=== PATIENT | male | born 1945 | race Caucasian/White ===

== ENCOUNTER → 2020-05-11 | Outpatient (CLI) | payer MEDICARE, OTHER ==
[2018-04-01 16:21] VITALS: BP 163/84
[~2020-05-11] MED LIST: ASPI-630 PO; CLOP75TA PO; DIAZ5TAB4 PO; DILT180C29 PO; FAMO20TA5 PO; IRBE300T23 PO; PANT40TA77 PO; WARF2.5T71 PO; WARF5TAB2 PO
== END | disposition home or self-care (01) ==
LOC: LAB 13:47
PROVIDERS: ATTEND Surgery
DX: Z01.818 Encounter for other preprocedural examination (principal); Z11.59 Encounter for screening for other viral diseases; I65.23 Occlusion and stenosis of bilateral carotid arteries
CPT/HCPCS: U0003-CS

== ENCOUNTER 2020-05-16 08:04 | Inpatient (IN) | payer MEDICARE, OTHER ==
[2020-05-16] VITALS (8 sets, daily range): BP systolic 131–189; BP diastolic 63–84
[~2020-05-16] VITALS: Ht 172.7 cm; Wt 78.0 kg
[~2020-05-16 08:04] MED LIST changes: +CLINDAMYCIN 900MG PREMIX 50 ML IV PRN; +HEPARIN SODIUM 5,000 UNIT in IV RINGERS,LACTATED 500ML 500 ML IRR ONE; +HYDROmorphone 2 MG/ML VIAL IV PRN; +IV RINGERS,LACTATED 1000ML 1,000 ML IV SCH; +LIDOCAINE 1% Multi-Dose 20 ML VIAL. ONE; +MIDAZOLAM HCL/PF 2 MG/2 ML VIAL. ONE; +MORPHINE SULFATE 2 MG/ML VIAL. IV PRN; +ONDANSETRON PF 4 MG/2 ML VIAL. IV PRN; +PROCHLORPERAZINE 10 MG/2 ML VIAL. IV PRN; +PROTAMINE 50 MG/5 ML VIAL. IV ONE; +SURGICEL FIBRILLAR 1X2 EACH. ONE; +fentaNYL PF VIAL 100 MCG/2 ML VIAL IV PRN
[2020-05-16] MEDS ORDERED: PHENYLEPHRINE 10 MG/ML VIAL. ONE (08:31)
[2020-05-16] MEDS ORDERED: DEXAMETHASONE SOD PHOS 4 MG/ML VIAL ONE (08:31)
[2020-05-16] MEDS ORDERED: ONDANSETRON PF 4 MG/2 ML VIAL. ONE (08:31)
[2020-05-16] MEDS ORDERED: HEPARIN for IV BOLUS 10,000 UNIT/10 ML VIAL. ONE (08:34)
[2020-05-16] MEDS ORDERED: FAMOTIDINE 20 MG/2 ML VIAL ONE (08:36)
[2020-05-16] MEDS ORDERED: ROPIVacaine 0.5% PF 20 ML VIAL. ONE (08:53)
[2020-05-16] MEDS ORDERED: LIDOCAINE 1% PF 2 ML VIAL. ONE (09:05)
[2020-05-16 09:14] LABS: BASO # 0.1 x10^3/uL (0.0-0.2); BASO % 1 % (0-3); EOS # 0.2 x10^3/uL (0.0-0.7); EOS % 3 % (0-3); HEMATOCRIT 39.3 % (39.0-53.0); HEMOGLOBIN 13.1 g/dL (13.0-17.5); LYMPH # 1.4 x10^3/uL (1.0-4.8); LYMPH % 21 % (24-48); MEAN CORPUSCULAR HEMOGLOBIN 29 pg (25-35); MEAN CORPUSCULAR HGB CONC 33 g/dL (31-37); MEAN CORPUSCULAR VOLUME 88 fL (79-100); MONO # 0.5 x10^3/uL (0.0-1.1); MONO % 8 % (0-9); NEUT # 4.6 x10^3/uL (1.8-7.7); NEUT % 68 % (31-73); PLATELET COUNT 223 x10^3/uL (140-400); RED BLOOD COUNT 4.47 x10^6/uL (4.30-5.70); RED CELL DISTRIBUTION WIDTH 15.5 % (11.5-14.5); WHITE BLOOD COUNT 6.7 x10^3/uL (4.0-11.0)
[2020-05-16] MEDS ORDERED: DEXMEDETOMIDINE 400 MCG in IV NORMAL SALINE 100ML 96 ML IV ONE (09:15)
[2020-05-16 09:30] LABS: CALCIUM 8.6 mg/dL (8.5-10.1); CREATININE 0.9 mg/dL (0.7-1.3); GFR 82.3; POTASSIUM 3.9 mmol/L (3.5-5.1)
[2020-05-16 09:31] LABS: PROTHROMBIN TIME PATIENT 15.4 SEC (11.7-14.0)
[2020-05-16] MEDS ORDERED: hydrALAZINE 20 MG/ML VIAL. ONE (09:54)
[2020-05-16] MEDS ORDERED: ePHEDrine PF IN SALINE 50 MG/10 ML SYRINGE. IV ONE ×2 (10:13→10:15)
[2020-05-16] MEDS ORDERED: GLYCOPYRROLATE 1 MG/5 ML VIAL. ONE (10:16)
[2020-05-16] MEDS ORDERED: LIDOCAINE 1% Multi-Dose 20 ML VIAL. ONE ×2 (10:24)
[2020-05-16] MEDS ORDERED: EPINEPHrine SYRINGE 1 MG/10 ML SYRINGE ONE (10:25)
--- NOTE | 2020-05-16 11:26 | PDOC ---
BRIEF OPERATIVE NOTE Date: May 16, 2020 Pre-Op Diagnosis Asymptomatic high-grade right internal carotid stenosis Post-Op Diagnosis Same Procedure Performed Right carotid endarterectomy with eversion technique Surgeon Enma Ac DO, FACS, RPVI Harvest Supervisor Tara Razo NP Anesthesia Type: Local Blood Loss 20mL Findings High-grade calcified stenosis in the right internal carotid artery Complications None Operative Note Full operative note is dictated ENMA AC DO May 16, 2020 11:26
[2020-05-16] MEDS ORDERED: hydrALAZINE 20 MG/ML VIAL. IVP PRN (11:30)
[2020-05-16] MEDS ORDERED: MORPHINE SULFATE 2 MG/ML VIAL. IV PRN (11:30)
[2020-05-16] MEDS ORDERED: HYDROcodone/APAP 5/325MG 1 TAB TABLET PO PRN ×2 (11:30)
[2020-05-16] MEDS ORDERED: ONDANSETRON PF 4 MG/2 ML VIAL. IVP PRN (11:30)
[2020-05-16] MEDS ORDERED: LABETALOL 20 MG/4 ML DISP.SYRIN. IVP PRN (11:30)
--- NOTE | 2020-05-16 11:40 | OP ---
DATE OF SURGERY: 05/16/2020 VASCULAR SURGERY OPERATIVE REPORT ATTENDING SURGEON: Geovanny Ac DO CORE COMPOSER MACHINE TENDER: Tara Razo NP PREOPERATIVE DIAGNOSIS: Asymptomatic high-grade right internal carotid stenosis. POSTOPERATIVE DIAGNOSIS: Asymptomatic high-grade right internal carotid stenosis. PROCEDURE: Right carotid endarterectomy with eversion technique. ANESTHESIA: Local with sedation. SPECIMENS: None. ESTIMATED BLOOD LOSS: 20 mL. COMPLICATIONS: None. PREOPERATIVE INDICATIONS: The patient is a very pleasant 74-year-old male, who presents for right carotid endarterectomy. I described all the details of the procedure with the patient and his and all risks, benefits, and alternatives of the procedure were discussed and he was agreeable to proceed. OPERATIVE PROCEDURE: The patient was brought to the operating suite and placed in supine position. After receiving a right sided cervical block and invasive monitoring lines per anesthesia, the right neck was prepped and draped in sterile fashion. Next, a timeout procedure was performed. It was confirmed that the patient did receive appropriate perioperative antibiotics and the correct operative site was marked and draped. Following this, a right sided sternocleidomastoid incision was made, carried through skin and subcutaneous tissue. Dissection was carried down through the platysma muscle until the sternocleidomastoid muscle was identified. Sternocleidomastoid muscle was reflected laterally exposing the jugular vein. Jugular vein was reflected laterally up to the level of the facial vein where this was carefully circumferentially dissected and then ligated and divided with silk ligatures. Following this, the common carotid artery was carefully identified and circumferentially dissected and controlled with a vessel loop. We also identified the vagus nerve and this was carefully preserved throughout its entire course. We carefully dissected up to the level of the carotid bifurcation where the external carotid artery was identified and circumferentially dissected and controlled with a vessel loop. We also identified the superior thyroid artery. Next, careful dissection of the mid to distal internal carotid artery was performed up to the level of the healthy portion of the vessel. The patient had a long calcified plaque originating from the carotid bifurcation into the proximal and mid internal carotid artery. I was able to find a healthy soft area of the artery for clamping purposes. I also identified the hypoglossal nerve and this was carefully preserved. Next, the patient was heparinized per weight-based protocol and after appropriate circulation time and after confirming the patient's hemodynamic status to be stable, the internal carotid artery was clamped followed by the common carotid artery followed by the external carotid artery. The patient had no changes in his neurologic status and was following commands. Next, an 11 blade scalpel was used to create an arteriotomy and this was extended and the internal carotid artery was transected from the carotid bifurcation. The patient had a bulky calcified plaque in this location. Next, a [place] elevator was used to start an endarterectomy plane and then the entire plaque was everted out of the internal carotid artery with a healthy distal endpoint, which was directly visualized within our field. Next, the endarterectomy was completed and the common carotid artery and the external carotid artery. Copious amounts of heparinized saline solution were used to help identify any potential loose fragments. Once I was satisfied with the endarterectomy, the internal carotid artery was reattached to the carotid bifurcation using a 6-0 Prolene suture and then the posterior suture line was completed first followed by the anterior suture line. Prior to completing our arteriotomy, we did backbleed and flush the vessels appropriately and then the arteriotomy was closed and flow was restored first to the external carotid artery followed by the common carotid artery and 4-5 heartbeats were allowed to flush any potential debris through the external system. Next, after confirming the patient's hemodynamic status to be stable, the internal carotid artery clamp was gradually released and then completely removed. Again, the patient had no changes in his neurologic status during the entire procedure. Following this, heparinized saline solution was used to irrigate the field and then protamine was administered. Fibrillar was used for raw surface bleeding. Next, an 8-Nepali drain was placed at the base of the neck and then after I was satisfied with the hemostasis and our lap, sponge, needle and instrument count was found to be correct, then the platysma layer was closed using a running 3-0 Vicryl suture followed by 4-0 Monocryl for the skin followed by Dermabond, followed by sterile drain dressing at the drain exit site. The patient tolerated the procedure well and was transferred to the postanesthesia care unit in stable condition. GEOVANNY AC DO DR: ROLO/vick JOB#: [id number] / [id number]
[2020-05-16] MEDS: LOSARTAN POTASSIUM 50 MG TABLET. PO SCH ×2 (12:00→19:41)
--- NOTE | 2020-05-16 13:57 | NUR ---
SS following for discharge planning. SS reviewed pt chart and discussed with pt RN. Pt is from home with spouse and is currently on room air. Pt had carotid endarterectomy today. SS will continue to follow for discharge planning.
[2020-05-16] MEDS: ACETAMINOPHEN 325 MG TABLET. PO SCH ×3 (14:21→22:00)
[2020-05-16] MEDS: diazePAM 5 MG TABLET PO SCH ×2 (14:22→19:41)
[2020-05-16] MEDS: IV NORMAL SALINE 1000ML BAG 1,000 ML IV SCH ×2 (14:25→21:27)
[2020-05-16] MEDS: PANTOPRAZOLE 40 MG TABLET.DR. PO SCH (16:51)
--- NOTE | 2020-05-16 18:28 | PDOC1 ---
History and Physical Date of Admission Date of Admission DATE: 05/16/20 TIME: 18:12 Identification/Chief Complaint Chief Complaint Endarterectomy Source Source: Patient History of Present Illness History of Present Illness Patient 74-year-old male who is status post endarterectomy for asymptomatic high-grade right internal carotid stenosis, and we were asked to consult for medical management. Per nursing staff he is having some urinary retention, with a history of BPH. Patient currently denies any significant pain. Patient is very hard of hearing, which does limit history taking to certain degree. Past Medical History Cardiovascular: CAD, CHF, HTN, Hyperlipidemia Pulmonary: No pertinent hx CENTRAL NERVOUS SYSTEM: CVA GI: No pertinent hx Heme/Onc: No pertinent hx Hepatobiliary: No pertinent hx Musculoskeletal: low back pain, Osteoarthritis Renal/: Benign prostatic enlarg. Endocrine: No pertinent hx Past Surgical History Past Surgical History: CABG, Other Family History Family History: Other (Family history noncontributory) Social History Smoke: No ALCOHOL: none Drugs: None Current Medications Current Medications Current Medications Ondansetron HCl (Zofran) 4 mg PRN Q6HRS PRN IV NAUSEA/VOMITING; Start 05/16/20 at 07:00; Stop 05/17/20 at 06:59 Fentanyl Citrate (Fentanyl 2ml Vial) 25 mcg PRN Q5MIN PRN IV MILD PAIN 1-3; Start 05/16/20 at 07:00; Stop 05/17/20 at 06:59 Fentanyl Citrate (Fentanyl 2ml Vial) 50 mcg PRN Q5MIN PRN IV MODERATE TO SEVERE PAIN; Start 05/16/20 at 07:00; Stop 05/17/20 at 06:59 Morphine Sulfate (Morphine Sulfate) 1 mg PRN Q10MIN PRN IV SEVERE PAIN 7-10; Start 05/16/20 at 07:00; Stop 05/17/20 at 06:59 Ringer's Solution 1,000 ml @ 30 mls/hr Q24H IV Last administered on 05/16/20at 09:38; Start 05/16/20 at 07:00; Stop 05/16/20 at 18:59 Hydromorphone HCl (Dilaudid) 0.5 mg PRN Q10MIN PRN IV SEV PAIN, Second choice; Start 05/16/20 at 07:00; Stop 05/17/20 at 06:59 Prochlorperazine Edisylate (Compazine) 5 mg PACU PRN PRN IV NAUSEA, MRX1; Start 05/16/20 at 07:00; Stop 05/17/20 at 06:59 Heparin Sodium (Porcine) 5000 unit/Ringer's Solution 505 ml @ 505 mls/hr 1X ONCE IRR Last administered on 05/16/20at 10:00; Start 05/16/20 at 06:00; Stop 05/16/20 at 06:59; Status DC Cefazolin Sodium 1 gm/Sodium Chloride 500 ml @ 500 mls/hr 1X ONCE IRR Last administered on 05/16/20at 10:00; Start 05/16/20 at 06:00; Stop 05/16/20 at 06:59; Status DC Clindamycin Phosphate 50 ml @ 100 mls/hr 1X PREOP PRN IV PRIOR TO PROCEDURE Last administered on 05/16/20at 09:37; Start 05/16/20 at 06:00; Stop 05/16/20 at 18:00; Status DC Lidocaine HCl (Lidocaine 1% 20ml Vial) 20 ml STK-MED ONCE .ROUTE Last administered on 05/16/20at 10:00; Start 05/16/20 at 07:33; Stop 05/16/20 at 07:33; Status DC Cellulose (Surgicel Fibrillar 1x2) 1 each STK-MED ONCE .ROUTE Last administered on 05/16/20at 10:00; Start 05/16/20 at 07:33; Stop 05/16/20 at 07:33; Status DC Protamine Sulfate (Protamine) 50 mg STK-MED ONCE IV ; Start 05/16/20 at 07:33; Stop 05/16/20 at 07:34; Status DC Midazolam HCl (Versed) 2 mg STK-MED ONCE .ROUTE ; Start 05/16/20 at 08:02; Stop 05/16/20 at 08:03; Status DC Midazolam HCl (Versed) 2 mg STK-MED ONCE .ROUTE ; Start 05/16/20 at 08:02; Stop 05/16/20 at 08:03; Status DC Dexamethasone Sodium Phosphate (Decadron) 4 mg STK-MED ONCE .ROUTE ; Start 05/16/20 at 08:31; Stop 05/16/20 at 08:31; Status DC Ondansetron HCl (Zofran) 4 mg STK-MED ONCE .ROUTE ; Start 05/16/20 at 08:31; Stop 05/16/20 at 08:31; Status DC Phenylephrine HCl ([place]-Synephrine Inj) 10 mg STK-MED ONCE .ROUTE ; Start 05/16/20 at 08:31; Stop 05/16/20 at 08:31; Status DC Heparin Sodium (Porcine) (Heparin Sodium) 10,000 unit STK-MED ONCE .ROUTE ; Start 05/16/20 at 08:34; Stop 05/16/20 at 08:34; Status DC Famotidine (Pepcid Vial) 20 mg STK-MED ONCE .ROUTE ; Start 05/16/20 at 08:36; Stop 05/16/20 at 08:37; Status DC Ropivacaine (Naropin 0.5%) 20 ml STK-MED ONCE .ROUTE ; Start 05/16/20 at 08:53; Stop 05/16/20 at 08:53; Status DC Dexmedetomidine HCl 400 mcg/ Sodium Chloride 100 ml @ 0 mls/hr 1X ONCE IV Last administered on 05/16/20at 09:30; Start 05/16/20 at 09:15; Stop 05/16/20 at 09:16; Status DC Lidocaine HCl (Xylocaine-Mpf 1% 2ml Vial) 2 ml STK-MED ONCE .ROUTE ; Start 05/16/20 at 09:05; Stop 05/16/20 at 09:06; Status DC Aspirin (Aspirin Chewable) 81 mg DAILY PO ; Start 05/17/20 at 09:00 Clopidogrel Bisulfate (Plavix) 75 mg DAILY PO ; Start 05/17/20 at 09:00 Diazepam (Valium) 2.5 mg TID PO Last administered on 05/16/20at 14:22; Start 05/16/20 at 14:00 Diltiazem HCl (Cardizem 24hr Cd) 180 mg DAILY PO ; Start 05/16/20 at 12:00 Pantoprazole Sodium (Protonix) 40 mg BIDAC PO Last administered on 05/16/20at 16:51; Start 05/16/20 at 16:30 Losartan Potassium (Cozaar) 50 mg BID PO ; Start 05/16/20 at 12:00 Hydralazine HCl (Apresoline Inj) 20 mg STK-MED ONCE .ROUTE ; Start 05/16/20 at 09:54; Stop 05/16/20 at 09:55; Status DC Ephedrine Sulfate (ePHEDrine PF IN SALINE SYRINGE) 50 mg STK-MED ONCE IV ; Start 05/16/20 at 10:13; Stop 05/16/20 at 10:13; Status DC Ephedrine Sulfate (ePHEDrine PF IN SALINE SYRINGE) 50 mg STK-MED ONCE IV ; Start 05/16/20 at 10:15; Stop 05/16/20 at 10:15; Status DC Glycopyrrolate (Robinul) 1 mg STK-MED ONCE .ROUTE ; Start 05/16/20 at 10:16; Stop 05/16/20 at 10:16; Status DC Lidocaine HCl (Lidocaine 1% 20ml Vial) 20 ml STK-MED ONCE .ROUTE Last admin istered on 05/16/20at 10:00; Start 05/16/20 at 10:24; Stop 05/16/20 at 10:24; Status DC Lidocaine HCl (Lidocaine 1% 20ml Vial) 20 ml STK-MED ONCE .ROUTE ; Start 05/16/20 at 10:24; Stop 05/16/20 at 10:25; Status DC Epinephrine HCl (EPINEPHrine SYRINGE) 1 mg STK-MED ONCE .ROUTE ; Start 05/16/20 at 10:25; Stop 05/16/20 at 10:25; Status DC Sodium Chloride (Normal Saline Flush) 3 ml QSHIFT PRN IV AFTER MEDS AND BLOOD DRAWS; Start 05/17/20 at 09:00 Sodium Chloride 1,000 ml @ 100 mls/hr Q10H IV Last administered on 05/16/20at 14:25; Start 05/16/20 at 11:27 Morphine Sulfate (Morphine Sulfate) 2 mg PRN Q1HR PRN IV PAIN; Start 05/16/20 a t 11:30 Acetaminophen/ Hydrocodone Bitart (Lortab 5/325) 1 tab PRN Q4HRS PRN PO MILD PAIN 1-3; Start 05/16/20 at 11:30 Acetaminophen/ Hydrocodone Bitart (Lortab 5/325) 2 tab PRN Q4HRS PRN PO MODERATE PAIN, SEVERE PAIN; Start 05/16/20 at 11:30 Acetaminophen (Tylenol) 650 mg Q8HRS PO Last administered on 05/16/20at 14:21; Start 05/16/20 at 14:00 Ondansetron HCl (Zofran) 4 mg PRN Q6HRS PRN IVP NAUESA, 1ST CHOICE; Start 05/16/20 at 11:30 Hydralazine HCl (Apresoline Inj) 5 mg PRN Q4HRS PRN IVP ELEVATED BP, SEE COMMENTS; Start 05/16/20 at 11:30 Labetalol HCl (Normodyne Iv Push) 10 mg PRN Q2HR PRN IVP HYPERTENSION Last administered on 05/16/20at 16:52; Start 05/16/20 at 11:30 Active Scripts Active Reported Pantoprazole Sodium (Pantoprazole Sodium) 40 Mg Tablet.dr 40 Mg PO BID Clopidogrel (Clopidogrel Bisulfate) 75 Mg Tablet 75 Mg PO DAILY Aspirin 81 Mg Tab.chew 81 Mg PO DAILY Warfarin Sodium 2.5 Mg Tablet 2.5 Mg PO UD Diazepam 5 Mg Tablet 0.5 Tab PO TID Irbesartan 300 Mg Tablet 0.5 Tab PO BID Diltiazem 24HR Cd (Diltiazem Hcl) 180 Mg Cap.er.24h 1 Cap PO DAILY Coumadin (Warfarin Sodium) 5 Mg Tablet 5 Mg PO QMWFSA As directed by PCP Allergies Allergies: Coded Allergies: carvedilol (Verified Allergy, Severe, Anaphylaxis, 05/14/20) Penicillins (Verified Allergy, Unknown, 03/31/18) [id number]-[id number] Reductase Inhibitor (Verified Allergy, Unknown, 03/31/18) atenolol (Verified Allergy, Unknown, Unknown, 05/14/20) hydrochlorothiazide (Verified Allergy, Unknown, Unknown, 05/14/20) metoprolol (Verified Allergy, Unknown, Unknown, 05/14/20) propoxyphene (Verified Allergy, Unknown, Unknown, 05/14/20) erythromycin base (Verified Adverse Reaction, Intermediate, Nausea and Vomiting, 05/14/20) tetracycline (Verified Adverse Reaction, Intermediate, 05/14/20) yeast infection ROS General: No: Chills, Night Sweats, Fatigue, Malaise, Appetite, Other PSYCHOLOGICAL ROS: No: Anxiety, Behavioral Disorder, Concentration difficultie, Decreased libido, Depression, Disorientation, Hallucinations, Hostility, Irritablity, Memory difficulties, Mood Swings, Obsessive thoughts, Physical abuse, Sexual abuse, Sleep disturbances, Suicidal ideation, Other Eyes: No Blurry vision, No Decreased vision, No Double vision, No Dry eyes, No Excessive tearing, No Eye Pain, No Itchy Eyes, No Loss of vision, No Photophobia, No Scotomata, No Uses contacts, No Uses glasses, No Other HEENT: No: Heacaches, Visual Changes, Hearing change, Nasal congestion, Nasal discharge, Oral lesions, Sinus pain, Sore Throat, Epistaxis, Sneezing, Snoring, Tinnitus, Vertigo, Vocal changes, Other Hematological and Lymphatic: No: Bleeding Problems, Blood Clots, Blood Transfusions, Brusing, Night Sweats, Pallor, Swollen Lymph Nodes, Other Respiratory: No: Cough, Hemoptysis, Orthopnea, Pleuritic Pain, Shortness of breath, SOB with excertion, Sputum Changes, Stridor, Tachypnea, Wheezing, Other Cardiovascular: No Chest Pain, No Palpitations, No Orthopnea, No Paroxysmal Noc. Dyspnea, No Edema, No Lt Headedness, No Other Gastrointestinal: No Nausea, No Vomiting, No Abdominal Pain, No Diarrhea, No Constipation, No Melena, No Hematochezia, No Other Genitourinary: YES Retention; No Dysuria, No Frequency, No Incontinence, No Hematuria, No Discharge, No Urgency, No Pain, No Flank Pain, No Other, No , No , No , No , No , No , No Musculoskeletal: No Gait Disturbance, No Joint Pain, No Joint Stiffness, No Joint Swelling, No Muscle Pain, No Muscular Weakness, No Pain In:, No Swelling I n:, No Other Skin: No Dry Skin, No Eczema, No Hair Changes, No Lumps, No Mole Changes, No Mottling, No Nail Changes, No Pruritus, No Rash, No Skin Lesion Changes, No Other, No Acne Physical Exam General: Alert, Oriented X3, Cooperative, No acute distress HEENT: PERRLA, Other (Difficulty hearing) Lungs: Clear to auscultation, Normal air movement Heart: S1S2, RRR Cardiovascular: S1, S2 Abdomen: Normal bowel sounds, Soft, No tenderness, No hepatosplenomegaly, No masses Extremities: No clubbing, No cyanosis, No edema, Normal pulses, No tenderness/swelling Skin: No rashes, No breakdown, Other (10 cm postsurgical scar to right neck, sutures in place) Neuro: Normal speech, Strength at 5/5 X4 ext, Normal tone, Sensation intact, Cranial nerves 3-12 NL Psych/Mental Status: Mental status NL, Mood NL Vitals Vitals Vital Signs Date Time Temp Pulse Resp B/P (MAP) Pulse Ox O2 Delivery O2 Flow Rate FiO2 05/16/20 17:30 87 144/67 (92) 05/16/20 15:00 97.4 20 97 Room Air 97.4 Labs Labs Laboratory Tests Test 05/16/20 08:30 White Blood Count 6.7 x10^3/uL (4.0-11.0) Red Blood Count 4.47 x10^6/uL (4.30-5.70) Hemoglobin 13.1 g/dL (13.0-17.5) Hematocrit 39.3 % (39.0-53.0) Mean Corpuscular Volume 88 fL (79-100) Mean Corpuscular Hemoglobin 29 pg (25-35) Mean Corpuscular Hemoglobin Concent 33 g/dL (31-37) Red Cell Distribution Width 15.5 % (11.5-14.5) Platelet Count 223 x10^3/uL (140-400) Neutrophils (%) (Auto) 68 % (31-73) Lymphocytes (%) (Auto) 21 % (24-48) Monocytes (%) (Auto) 8 % (0-9) Eosinophils (%) (Auto) 3 % (0-3) Basophils (%) (Auto) 1 % (0-3) Neutrophils # (Auto) 4.6 x10^3/uL (1.8-7.7) Lymphocytes # (Auto) 1.4 x10^3/uL (1.0-4.8) Monocytes # (Auto) 0.5 x10^3/uL (0.0-1.1) Eosinophils # (Auto) 0.2 x10^3/uL (0.0-0.7) Basophils # (Auto) 0.1 x10^3/uL (0.0-0.2) Prothrombin Time 15.4 SEC (11.7-14.0) Prothromb Time International Ratio 1.3 (0.8-1.1) Sodium Level 140 mmol/L (136-145) Potassium Level 3.9 mmol/L (3.5-5.1) Chloride Level 103 mmol/L (98-107) Carbon Dioxide Level 29 mmol/L (21-32) Anion Gap 8 (6-14) Blood Urea Nitrogen 14 mg/dL (8-26) Creatinine 0.9 mg/dL (0.7-1.3) Estimated GFR (Cockcroft-Gault) 82.3 Glucose Level 125 mg/dL (70-99) Calcium Level 8.6 mg/dL (8.5-10.1) Laboratory Tests Test 05/16/20 08:30 White Blood Count 6.7 x10^3/uL (4.0-11.0) Red Blood Count 4.47 x10^6/uL (4.30-5.70) Hemoglobin 13.1 g/dL (13.0-17.5) Hematocrit 39.3 % (39.0-53.0) Mean Corpuscular Volume 88 fL (79-100) Mean Corpuscular Hemoglobin 29 pg (25-35) Mean Corpuscular Hemoglobin Concent 33 g/dL (31-37) Red Cell Distribution Width 15.5 % (11.5-14.5) Platelet Count 223 x10^3/uL (140-400) Neutrophils (%) (Auto) 68 % (31-73) Lymphocytes (%) (Auto) 21 % (24-48) Monocytes (%) (Auto) 8 % (0-9) Eosinophils (%) (Auto) 3 % (0-3) Basophils (%) (Auto) 1 % (0-3) Neutrophils # (Auto) 4.6 x10^3/uL (1.8-7.7) Lymphocytes # (Auto) 1.4 x10^3/uL (1.0-4.8) Monocytes # (Auto) 0.5 x10^3/uL (0.0-1.1) Eosinophils # (Auto) 0.2 x10^3/uL (0.0-0.7) Basophils # (Auto) 0.1 x10^3/uL (0.0-0.2) Prothrombin Time 15.4 SEC (11.7-14.0) Prothromb Time International Ratio 1.3 (0.8-1.1) Sodium Level 140 mmol/L (136-145) Potassium Level 3.9 mmol/L (3.5-5.1) Chloride Level 103 mmol/L (98-107) Carbon Dioxide Level 29 mmol/L (21-32) Anion Gap 8 (6-14) Blood Urea Nitrogen 14 mg/dL (8-26) Creatinine 0.9 mg/dL (0.7-1.3) Estimated GFR (Cockcroft-Gault) 82.3 Glucose Level 125 mg/dL (70-99) Calcium Level 8.6 mg/dL (8.5-10.1) VTE Prophylaxis Ordered VTE Prophylaxis Devices: No VTE Pharmacological Prophylaxi: No (Warfarin) Assessment/Plan Assessment/Plan Plan: 74-year-old male with past medical history of atrial fibrillation and coronary artery disease, status post carotid endarterectomy. Will resume his home medications, will manage any pain. Will resume his home warfarin, follow daily INRs. He is having some urinary retention with a history of BPH. Will obtain bilateral renal ultrasounds. He apparently has an outpatient urology follow-up, and may need to discharge patient with leg bag Thacker if retention continues to be an ongoing issue. AMY VILLARREAL MD May 16, 2020 18:28
[2020-05-16] MEDS ORDERED: WARFARIN 5 MG TABLET. PO SCH (18:40)
[2020-05-16] MEDS ORDERED: ANTI-COAG MONITOR BY PHARMACY. MC PRN (18:45)
--- NOTE | 2020-05-16 21:20 | RAD ---
RENAL COMPLETE BILATERAL History: Reason: difficulty emptying bladder / Spl. Instructions: / History: Comparison: None. Procedure: Transabdominal ultrasound images are obtained of the kidneys and bladder. Findings: Right kidney: measures 10.2 x 5.9 x 4.8 cm. Normal cortical echotexture. Corticomedullary differentiation is preserved. No hydronephrosis. Left kidney: measures 10.2 x 5.3 x 5.9 cm. Left renal parenchymal calcification. No hydronephrosis. Several left renal cysts largest measures 3.2 cm and 2.9 cm. Urinary bladder: Decompressed urinary bladder with Thacker catheter in place. The IVC is normal caliber. The visualized abdominal aorta is normal caliber. IMPRESSION: 1. Left renal cysts. No follow-up imaging is recommended per consensus recommendations based on imaging criteria. 2. Left mid renal parenchymal calcification. Electronically signed by: Car Ortiz DO (05/16/2020 9:17 PM) [facility]
[2020-05-17 02:51] VITALS: BP 143/65
[2020-05-17] MEDS: ACETAMINOPHEN 325 MG TABLET. PO SCH ×2 (06:09→15:25)
[2020-05-17 06:16] LABS: HEMATOCRIT 36.4 % (39.0-53.0); HEMOGLOBIN 12.1 g/dL (13.0-17.5); RED BLOOD COUNT 4.19 x10^6/uL (4.30-5.70); RED CELL DISTRIBUTION WIDTH 15.4 % (11.5-14.5); WHITE BLOOD COUNT 13.7 x10^3/uL (4.0-11.0)
[2020-05-17 06:26] LABS: PROTHROMBIN TIME PATIENT 15.2 SEC (11.7-14.0)
[2020-05-17 06:32] LABS: CALCIUM 7.5 mg/dL (8.5-10.1); GFR 72.8
[2020-05-17 07:00] VITALS: BP 166/70
[2020-05-17] MEDS: diazePAM 5 MG TABLET PO SCH ×2 (07:55→15:24)
[2020-05-17] MEDS: PANTOPRAZOLE 40 MG TABLET.DR. PO SCH ×2 (07:55→15:24)
[2020-05-17] MEDS: LOSARTAN POTASSIUM 50 MG TABLET. PO SCH (07:58)
--- NOTE | 2020-05-17 08:24 | PDOC ---
PROGRESS NOTES Date of Service: DATE: 05/17/20 TIME: 08:24 Chief Complaint Chief Complaint VTE Prophylaxis Ordered VTE Prophylaxis Devices: No VTE Pharmacological Prophylaxi: No (Warfarin) Assessment/Plan Assessment/Plan Plan: 74-year-old male with past medical history of atrial fibrillation and coronary artery disease, status post carotid endarterectomy. Right carotid endarterectomy with eversion technique. resume his home medications, will manage any pain. resume his home warfarin, follow daily INRs. He is having some urinary retention with a history of BPH. obtain bilateral renal ultrasounds. outpatient urology follow-up, and may need to discharge patient with leg bag Thacker if retention continues to be an ongoing issue. d/w rn DPOA REVIEW, DISCUSSION 10 MG Justifications for Admission History of Present Illness History of Present Illness History of Present Illness History of Present Illness Patient 74-year-old male who is status post endarterectomy for asymptomatic high-grade right internal carotid stenosis, and we were asked to consult for medical management. Per nursing staff he is having some urinary retention, with a history of BPH. Patient currently denies any significant pain. Patient is very hard of hearing, which does limit history taking to certain degree. Past Medical History Cardiovascular: CAD, CHF, HTN, Hyperlipidemia Pulmonary: No pertinent hx CENTRAL NERVOUS SYSTEM: CVA GI: No pertinent hx Heme/Onc: No pertinent hx Hepatobiliary: No pertinent hx Musculoskeletal: low back pain, Osteoarthritis Renal/: Benign prostatic enlarg. Endocrine: No pertinent hx Past Surgical History Past Surgical History: CABG, Other Family History Family History: Other (Family history noncontributory) Vitals Vitals Vital Signs Date Time Temp Pulse Resp B/P (MAP) Pulse Ox O2 Delivery O2 Flow Rate FiO2 05/17/20 07:58 90 166/70 05/17/20 07:54 20 95 Room Air 05/17/20 07:00 98.2 98.2 Physical Exam Physical Exam incision clean and dry General: Alert, Oriented X3, Cooperative, No acute distress Heart: Regular rate, Normal S1, Normal S2 Lungs: Clear Abdomen: Normal bowel sounds, Soft, No tenderness, No hepatosplenomegaly, No masses Extremities: No clubbing, No cyanosis, No edema, Normal pulses, No tenderness/swelling Skin: No rashes, No breakdown, Other (10 cm postsurgical scar to right neck, sutures in place) Labs LABS STATUS: ADM IN ORD. PHYSICIAN: AMY VILLARREAL MD REASON: difficulty emptying bladder PROCEDURE: RENAL COMPLETE BILATERAL RENAL COMPLETE BILATERAL History: Reason: difficulty emptying bladder / Spl. Instructions: / History: Comparison: None. Procedure: Transabdominal ultrasound images are obtained of the kidneys and bladder. Findings: Right kidney: measures 10.2 x 5.9 x 4.8 cm. Normal cortical echotexture. Corticomedullary differentiation is preserved. No hydronephrosis. Left kidney: measures 10.2 x 5.3 x 5.9 cm. Left renal parenchymal calcification. No hydronephrosis. Several left renal cysts largest measures 3.2 cm and 2.9 cm. Urinary bladder: Decompressed urinary bladder with Thacker catheter in place. The IVC is normal caliber. The visualized abdominal aorta is normal caliber. IMPRESSION: 1. Left renal cysts. No follow-up imaging is recommended per consensus recommendations based on imaging criteria. 2. Left mid renal parenchymal calcification. Electronically signed by: Car Ortiz DO (05/16/2020 9:17 PM) [facility] DICTATED and SIGNED BY: CAR ORTIZ DO DATE: 05/16/202116 VASCULAR SURGERY OPERATIVE REPORT ATTENDING SURGEON: Geovanny Storey DO THEATRE DIRECTOR: Tara Razo NP PREOPERATIVE DIAGNOSIS: Asymptomatic high-grade right internal carotid stenosis. POSTOPERATIVE DIAGNOSIS: Asymptomatic high-grade right internal carotid stenosis. PROCEDURE: Right carotid endarterectomy with eversion technique. ANESTHESIA: Local with sedation. SPECIMENS: None. ESTIMATED BLOOD LOSS: 20 mL. COMPLICATIONS: None. PREOPERATIVE INDICATIONS: The patient is a very pleasant 74-year-old male, who presents for right carotid endarterectomy. I described all the details of the procedure with the patient and his and all risks, benefits, and alternatives of the procedure were discussed and he was agreeable to proceed. Laboratory Tests Test 05/16/20 08:30 05/17/20 05:40 White Blood Count 6.7 x10^3/uL (4.0-11.0) 13.7 x10^3/uL (4.0-11.0) Red Blood Count 4.47 x10^6/uL (4.30-5.70) 4.19 x10^6/uL (4.30-5.70) Hemoglobin 13.1 g/dL (13.0-17.5) 12.1 g/dL (13.0-17.5) Hematocrit 39.3 % (39.0-53.0) 36.4 % (39.0-53.0) Mean Corpuscular Volume 88 fL (79-100) 87 fL (79-100) Mean Corpuscular Hemoglobin 29 pg (25-35) 29 pg (25-35) Mean Corpuscular Hemoglobin Concent 33 g/dL (31-37) 33 g/dL (31-37) Red Cell Distribution Width 15.5 % (11.5-14.5) 15.4 % (11.5-14.5) Platelet Count 223 x10^3/uL (140-400) 233 x10^3/uL (140-400) Neutrophils (%) (Auto) 68 % (31-73) Lymphocytes (%) (Auto) 21 % (24-48) Monocytes (%) (Auto) 8 % (0-9) Eosinophils (%) (Auto) 3 % (0-3) Basophils (%) (Auto) 1 % (0-3) Neutrophils # (Auto) 4.6 x10^3/uL (1.8-7.7) Lymphocytes # (Auto) 1.4 x10^3/uL (1.0-4.8) Monocytes # (Auto) 0.5 x10^3/uL (0.0-1.1) Eosinophils # (Auto) 0.2 x10^3/uL (0.0-0.7) Basophils # (Auto) 0.1 x10^3/uL (0.0-0.2) Prothrombin Time 15.4 SEC (11.7-14.0) 15.2 SEC (11.7-14.0) Prothromb Time International Ratio 1.3 (0.8-1.1) 1.2 (0.8-1.1) Sodium Level 140 mmol/L (136-145) 140 mmol/L (136-145) Potassium Level 3.9 mmol/L (3.5-5.1) 4.0 mmol/L (3.5-5.1) Chloride Level 103 mmol/L (98-107) 103 mmol/L (98-107) Carbon Dioxide Level 29 mmol/L (21-32) 26 mmol/L (21-32) Anion Gap 8 (6-14) 11 (6-14) Blood Urea Nitrogen 14 mg/dL (8-26) 14 mg/dL (8-26) Creatinine 0.9 mg/dL (0.7-1.3) 1.0 mg/dL (0.7-1.3) Estimated GFR (Cockcroft-Gault) 82.3 72.8 Glucose Level 125 mg/dL (70-99) 126 mg/dL (70-99) Calcium Level 8.6 mg/dL (8.5-10.1) 7.5 mg/dL (8.5-10.1) Comment Review of Relevant I have reviewed the following items lynn (where applicable) has been applied. Labs Laboratory Tests Test 05/16/20 08:30 05/17/20 05:40 White Blood Count 6.7 x10^3/uL (4.0-11.0) 13.7 x10^3/uL (4.0-11.0) Red Blood Count 4.47 x10^6/uL (4.30-5.70) 4.19 x10^6/uL (4.30-5.70) Hemoglobin 13.1 g/dL (13.0-17.5) 12.1 g/dL (13.0-17.5) Hematocrit 39.3 % (39.0-53.0) 36.4 % (39.0-53.0) Mean Corpuscular Volume 88 fL (79-100) 87 fL (79-100) Mean Corpuscular Hemoglobin 29 pg (25-35) 29 pg (25-35) Mean Corpuscular Hemoglobin Concent 33 g/dL (31-37) 33 g/dL (31-37) Red Cell Distribution Width 15.5 % (11.5-14.5) 15.4 % (11.5-14.5) Platelet Count 223 x10^3/uL (140-400) 233 x10^3/uL (140-400) Neutrophils (%) (Auto) 68 % (31-73) Lymphocytes (%) (Auto) 21 % (24-48) Monocytes (%) (Auto) 8 % (0-9) Eosinophils (%) (Auto) 3 % (0-3) Basophils (%) (Auto) 1 % (0-3) Neutrophils # (Auto) 4.6 x10^3/uL (1.8-7.7) Lymphocytes # (Auto) 1.4 x10^3/uL (1.0-4.8) Monocytes # (Auto) 0.5 x10^3/uL (0.0-1.1) Eosinophils # (Auto) 0.2 x10^3/uL (0.0-0.7) Basophils # (Auto) 0.1 x10^3/uL (0.0-0.2) Prothrombin Time 15.4 SEC (11.7-14.0) 15.2 SEC (11.7-14.0) Prothromb Time International Ratio 1.3 (0.8-1.1) 1.2 (0.8-1.1) Sodium Level 140 mmol/L (136-145) 140 mmol/L (136-145) Potassium Level 3.9 mmol/L (3.5-5.1) 4.0 mmol/L (3.5-5.1) Chloride Level 103 mmol/L (98-107) 103 mmol/L (98-107) Carbon Dioxide Level 29 mmol/L (21-32) 26 mmol/L (21-32) Anion Gap 8 (6-14) 11 (6-14) Blood Urea Nitrogen 14 mg/dL (8-26) 14 mg/dL (8-26) Creatinine 0.9 mg/dL (0.7-1.3) 1.0 mg/dL (0.7-1.3) Estimated GFR (Cockcroft-Gault) 82.3 72.8 Glucose Level 125 mg/dL (70-99) 126 mg/dL (70-99) Calcium Level 8.6 mg/dL (8.5-10.1) 7.5 mg/dL (8.5-10.1) Laboratory Tests Test 05/16/20 08:30 05/17/20 05:40 White Blood Count 6.7 x10^3/uL (4.0-11.0) 13.7 x10^3/uL (4.0-11.0) Red Blood Count 4.47 x10^6/uL (4.30-5.70) 4.19 x10^6/uL (4.30-5.70) Hemoglobin 13.1 g/dL (13.0-17.5) 12.1 g/dL (13.0-17.5) Hematocrit 39.3 % (39.0-53.0) 36.4 % (39.0-53.0) Mean Corpuscular Volume 88 fL (79-100) 87 fL (79-100) Mean Corpuscular Hemoglobin 29 pg (25-35) 29 pg (25-35) Mean Corpuscular Hemoglobin Concent 33 g/dL (31-37) 33 g/dL (31-37) Red Cell Distribution Width 15.5 % (11.5-14.5) 15.4 % (11.5-14.5) Platelet Count 223 x10^3/uL (140-400) 233 x10^3/uL (140-400) Neutrophils (%) (Auto) 68 % (31-73) Lymphocytes (%) (Auto) 21 % (24-48) Monocytes (%) (Auto) 8 % (0-9) Eosinophils (%) (Auto) 3 % (0-3) Basophils (%) (Auto) 1 % (0-3) Neutrophils # (Auto) 4.6 x10^3/uL (1.8-7.7) Lymphocytes # (Auto) 1.4 x10^3/uL (1.0-4.8) Monocytes # (Auto) 0.5 x10^3/uL (0.0-1.1) Eosinophils # (Auto) 0.2 x10^3/uL (0.0-0.7) Basophils # (Auto) 0.1 x10^3/uL (0.0-0.2) Prothrombin Time 15.4 SEC (11.7-14.0) 15.2 SEC (11.7-14.0) Prothromb Time International Ratio 1.3 (0.8-1.1) 1.2 (0.8-1.1) Sodium Level 140 mmol/L (136-145) 140 mmol/L (136-145) Potassium Level 3.9 mmol/L (3.5-5.1) 4.0 mmol/L (3.5-5.1) Chloride Level 103 mmol/L (98-107) 103 mmol/L (98-107) Carbon Dioxide Level 29 mmol/L (21-32) 26 mmol/L (21-32) Anion Gap 8 (6-14) 11 (6-14) Blood Urea Nitrogen 14 mg/dL (8-26) 14 mg/dL (8-26) Creatinine 0.9 mg/dL (0.7-1.3) 1.0 mg/dL (0.7-1.3) Estimated GFR (Cockcroft-Gault) 82.3 72.8 Glucose Level 125 mg/dL (70-99) 126 mg/dL (70-99) Calcium Level 8.6 mg/dL (8.5-10.1) 7.5 mg/dL (8.5-10.1) Medications Current Medications Ondansetron HCl (Zofran) 4 mg PRN Q6HRS PRN IV NAUSEA/VOMITING; Start 05/16/20 at 07:00; Stop 05/17/20 at 06:59; Status DC Fentanyl Citrate (Fentanyl 2ml Vial) 25 mcg PRN Q5MIN PRN IV MILD PAIN 1-3; Start 05/16/20 at 07:00; Stop 05/17/20 at 06:59; Status DC Fentanyl Citrate (Fentanyl 2ml Vial) 50 mcg PRN Q5MIN PRN IV MODERATE TO SEVERE PAIN; Start 05/16/20 at 07:00; Stop 05/17/20 at 06:59; Status DC Morphine Sulfate (Morphine Sulfate) 1 mg PRN Q10MIN PRN IV SEVERE PAIN 7-10; Start 05/16/20 at 07:00; Stop 05/17/20 at 06:59; Status DC Ringer's Solution 1,000 ml @ 30 mls/hr Q24H IV Last administered on 05/16/20at 09:38; Start 05/16/20 at 07:00; Stop 05/16/20 at 18:59; Status DC Hydromorphone HCl (Dilaudid) 0.5 mg PRN Q10MIN PRN IV SEV PAIN, Second choice; Start 05/16/20 at 07:00; Stop 05/17/20 at 06:59; Status DC Prochlorperazine Edisylate (Compazine) 5 mg PACU PRN PRN IV NAUSEA, MRX1; Start 05/16/20 at 07:00; Stop 05/17/20 at 06:59; Status DC Heparin Sodium (Porcine) 5000 unit/Ringer's Solution 505 ml @ 505 mls/hr 1X ONCE IRR Last administered on 05/16/20at 10:00; Start 05/16/20 at 06:00; Stop 05/16/20 at 06:59; Status DC Cefazolin Sodium 1 gm/Sodium Chloride 500 ml @ 500 mls/hr 1X ONCE IRR Last administered on 05/16/20at 10:00; Start 05/16/20 at 06:00; Stop 05/16/20 at 06:59; Status DC Clindamycin Phosphate 50 ml @ 100 mls/hr 1X PREOP PRN IV PRIOR TO PROCEDURE Last administered on 05/16/20at 09:37; Start 05/16/20 at 06:00; Stop 05/16/20 at 18:00; Status DC Lidocaine HCl (Lidocaine 1% 20ml Vial) 20 ml STK-MED ONCE .ROUTE Last a dministered on 05/16/20at 10:00; Start 05/16/20 at 07:33; Stop 05/16/20 at 07:33; Status DC Cellulose (Surgicel Fibrillar 1x2) 1 each STK-MED ONCE .ROUTE Last administered on 05/16/20at 10:00; Start 05/16/20 at 07:33; Stop 05/16/20 at 07:33; Status DC Protamine Sulfate (Protamine) 50 mg STK-MED ONCE IV ; Start 05/16/20 at 07:33; Stop 05/16/20 at 07:34; Status DC Midazolam HCl (Versed) 2 mg STK-MED ONCE .ROUTE ; Start 05/16/20 at 08:02; Stop 05/16/20 at 08:03; Status DC Midazolam HCl (Versed) 2 mg STK-MED ONCE .ROUTE ; Start 05/16/20 at 08:02; Stop 05/16/20 at 08:03; Status DC Dexamethasone Sodium Phosphate (Decadron) 4 mg STK-MED ONCE .ROUTE ; Start 05/16/20 at 08:31; Stop 05/16/20 at 08:31; Status DC Ondansetron HCl (Zofran) 4 mg STK-MED ONCE .ROUTE ; Start 05/16/20 at 08:31; Stop 05/16/20 at 08:31; Status DC Phenylephrine HCl (Jasper-Synephrine Inj) 10 mg STK-MED ONCE .ROUTE ; Start 05/16/20 at 08:31; Stop 05/16/20 at 08:31; Status DC Heparin Sodium (Porcine) (Heparin Sodium) 10,000 unit STK-MED ONCE .ROUTE ; Start 05/16/20 at 08:34; Stop 05/16/20 at 08:34; Status DC Famotidine (Pepcid Vial) 20 mg STK-MED ONCE .ROUTE ; Start 05/16/20 at 08:36; Stop 05/16/20 at 08:37; Status DC Ropivacaine (Naropin 0.5%) 20 ml STK-MED ONCE .ROUTE ; Start 05/16/20 at 08:53; Stop 05/16/20 at 08:53; Status DC Dexmedetomidine HCl 400 mcg/ Sodium Chloride 100 ml @ 0 mls/hr 1X ONCE IV Last administered on 05/16/20at 09:30; Start 05/16/20 at 09:15; Stop 05/16/20 at 09:16; Status DC Lidocaine HCl (Xylocaine-Mpf 1% 2ml Vial) 2 ml STK-MED ONCE .ROUTE ; Start 05/16/20 at 09:05; Stop 05/16/20 at 09:06; Status DC Aspirin (Aspirin Chewable) 81 mg DAILY PO Last administered on 05/17/20at 07:55; Start 05/17/20 at 09:00 Clopidogrel Bisulfate (Plavix) 75 mg DAILY PO Last administered on 05/17/20at 07:56; Start 05/17/20 at 09:00 Diazepam (Valium) 2.5 mg TID PO Last administered on 05/17/20at 07:55; Start 05/16/20 at 14:00 Diltiazem HCl (Cardizem 24hr Cd) 180 mg DAILY PO Last administered on 05/17/20at 07:58; Start 05/16/20 at 12:00 Pantoprazole Sodium (Protonix) 40 mg BIDAC PO Last administered on 05/17/20at 07:55; Start 05/16/20 at 16:30 Losartan Potassium (Cozaar) 50 mg BID PO Last administered on 05/17/20at 07:58; Start 05/16/20 at 12:00 Hydralazine HCl (Apresoline Inj) 20 mg STK-MED ONCE .ROUTE ; Start 05/16/20 at 09:54; Stop 05/16/20 at 09:55; Status DC Ephedrine Sulfate (ePHEDrine PF IN SALINE SYRINGE) 50 mg STK-MED ONCE IV ; Start 05/16/20 at 10:13; Stop 05/16/20 at 10:13; Status DC Ephedrine Sulfate (ePHEDrine PF IN SALINE SYRINGE) 50 mg STK-MED ONCE IV ; Start 05/16/20 at 10:15; Stop 05/16/20 at 10:15; Status DC Glycopyrrolate (Robinul) 1 mg STK-MED ONCE .ROUTE ; Start 05/16/20 at 10:16; Stop 05/16/20 at 10:16; Status DC Lidocaine HCl (Lidocaine 1% 20ml Vial) 20 ml STK-MED ONCE .ROUTE Last administered on 05/16/20at 10:00; Start 05/16/20 at 10:24; Stop 05/16/20 at 10:24; Status DC Lidocaine HCl (Lidocaine 1% 20ml Vial) 20 ml STK-MED ONCE .ROUTE ; Start 05/16/20 at 10:24; Stop 05/16/20 at 10:25; Status DC Epinephrine HCl (EPINEPHrine SYRINGE) 1 mg STK-MED ONCE .ROUTE ; Start 05/16/20 at 10:25; Stop 05/16/20 at 10:25; Status DC Sodium Chloride (Normal Saline Flush) 3 ml QSHIFT PRN IV AFTER MEDS AND BLOOD DRAWS; Start 05/17/20 at 09:00 Sodium Chloride 1,000 ml @ 100 mls/hr Q10H IV Last administered on 05/16/20at 14:25; Start 05/16/20 at 11:27 Morphine Sulfate (Morphine Sulfate) 2 mg PRN Q1HR PRN IV PAIN; Start 05/16/20 at 11:30 Acetaminophen/ Hydrocodone Bitart (Lortab 5/325) 1 tab PRN Q4HRS PRN PO MILD PAIN 1-3 Last administered on 05/16/20at 19:43; Start 05/16/20 at 11:30 Acetaminophen/ Hydrocodone Bitart (Lortab 5/325) 2 tab PRN Q4HRS PRN PO MODERAT E PAIN, SEVERE PAIN Last administered on 05/17/20at 07:54; Start 05/16/20 at 11:30 Acetaminophen (Tylenol) 650 mg Q8HRS PO Last administered on 05/17/20at 06:09; Start 05/16/20 at 14:00 Ondansetron HCl (Zofran) 4 mg PRN Q6HRS PRN IVP NAUESA, 1ST CHOICE; Start 05/16/20 at 11:30 Hydralazine HCl (Apresoline Inj) 5 mg PRN Q4HRS PRN IVP ELEVATED BP, SEE COMMENTS; Start 05/16/20 at 11:30 Labetalol HCl (Normodyne Iv Push) 10 mg PRN Q2HR PRN IVP HYPERTENSION Last administered on 05/16/20at 16:52; Start 05/16/20 at 11:30 Warfarin Sodium (Coumadin) 2.5 mg QSUTUTH PO ; Start 05/17/20 at 16:00 Warfarin Sodium (Coumadin) 5 mg QMWFSA PO Last administered on 05/16/20at 19:40; Start 05/16/20 at 18:40 Info (Anti-Coagulation Monitoring By Pharmacy) 1 each PRN DAILY PRN MC SEE COMMENTS; Start 05/16/20 at 18:45 Active Scripts Active Reported Pantoprazole Sodium (Pantoprazole Sodium) 40 Mg Tablet.dr 40 Mg PO BID Clopidogrel (Clopidogrel Bisulfate) 75 Mg Tablet 75 Mg PO DAILY Aspirin 81 Mg Tab.chew 81 Mg PO DAILY Warfarin Sodium 2.5 Mg Tablet 2.5 Mg PO UD Diazepam 5 Mg Tablet 0.5 Tab PO TID Irbesartan 300 Mg Tablet 0.5 Tab PO BID Diltiazem 24HR Cd (Diltiazem Hcl) 180 Mg Cap.er.24h 1 Cap PO DAILY Coumadin (Warfarin Sodium) 5 Mg Tablet 5 Mg PO QMWFSA As directed by PCP Vitals/I & O Vital Sign - Last 24 Hours 05/16/20 05/16/20 05/16/20 05/16/20 08:43 09:37 11:26 11:41 Temp 97.8 97.8 97.8 97.8 97.8 97.8 Pulse 75 75 71 78 Resp 18 18 20 20 B/P (MAP) 134/74 145/68 145/76 Pulse Ox 97 97 95 99 O2 Delivery Room Air Room Air Room Air 05/16/20 05/16/20 05/16/20 05/16/20 11:56 12:05 12:20 12:35 Pulse 78 84 80 86 Resp 20 20 20 20 B/P (MAP) 154/76 153/87 155/76 162/63 Pulse Ox 95 95 95 96 O2 Delivery Room Air Room Air Room Air Room Air 05/16/20 05/16/20 05/16/20 05/16/20 12:50 13:05 13:20 13:38 Temp 97.0 97.5 97.0 97.5 Pulse 80 76 76 77 Resp 20 20 20 16 B/P (MAP) 183/78 164/74 154/64 148/66 (93) Pulse Ox 94 94 94 95 O2 Delivery Room Air Room Air Room Air 05/16/20 05/16/20 05/16/20 05/16/20 14:00 14:30 15:00 15:30 Temp 97.4 97.4 Pulse 85 82 86 Resp 20 B/P (MAP) 174/73 (106) 174/73 (106) 158/71 (100) Pulse Ox 97 O2 Delivery Room Air Room Air 05/16/20 05/16/20 05/16/20 05/16/20 16:30 16:52 17:30 18:30 Pulse 116 98 87 99 B/P (MAP) 189/84 (119) 189/84 144/67 (92) 155/66 (95) 05/16/20 05/16/20 05/16/20 05/16/20 19:41 19:43 20:00 20:43 Pulse 99 Resp 18 18 B/P (MAP) 155/66 Pulse Ox 97 95 O2 Delivery Room Air Room Air Room Air 05/16/20 05/17/20 05/17/20 05/17/20 22:56 02:51 07:00 07:54 Temp 97.9 98.0 98.2 97.9 98.0 98.2 Pulse 87 85 90 Resp 19 20 20 20 B/P (MAP) 131/63 (85) 143/65 (91) 166/70 (102) Pulse Ox 95 94 95 95 O2 Delivery Room Air 05/17/20 05/17/20 07:58 07:58 Pulse 90 90 B/P (MAP) 166/70 166/70 Intake and Output 05/16/20 05/16/20 05/17/20 15:00 23:00 07:00 Intake Total 1000 ml 550 ml 1200 ml Output Total 20 ml 775 ml 620 ml Balance 980 ml -225 ml 580 ml Justicifation of Admission Dx: Justifications for Admission: Justification of Admission Dx: Yes Comments: carotid stenosis, urinary retention HELENA VALENTINE MD May 17, 2020 08:24
[2020-05-17] MEDS ORDERED: CLOPIDOGREL BISULFATE 75 MG TABLET PO SCH (09:00)
[2020-05-17] MEDS ORDERED: 0.9 % SODIUM CHLORIDE 10 ML DISP.SYRIN. IV PRN (09:00)
[2020-05-17] MEDS ORDERED: ASPIRIN CHEWABLE 81 MG TABLET. PO SCH (09:00)
[2020-05-17] MEDS: IV NORMAL SALINE 1000ML BAG 1,000 ML IV SCH (09:53)
[2020-05-17 10:36] VITALS: BP 133/60
--- NOTE | 2020-05-17 13:45 | PDOC ---
Provider Note Date of Service: DATE: 05/17/20 TIME: 13:41 Provider Note Provider Note Vascular S: Patient seen and examined in room. Patient denies any incisional pain or discomfort. Continues to have urinary retention, Thacker is in place. Nurse reports patient straight caths at home on occasion. O: Awake and alert Vital signs stable, afebrile Right neck incision is dry and intact, drain is removed minimal output. No hematoma or swelling, trachea is midline. Fish Fryer are equal, speech is clear. A/P: Postop day 1 right carotid endarterectomy Doing well with the exception of urinary retention. May saline lock IV Up ad ashwini. Patient may discharge to home if okay with internal medicine and their direction for his urinary retention. Patient will need to follow-up with urology on an outpatient basis. Follow-up with Dr. Fonseca's as scheduled. Patient may shower starting tomorrow. No heavy lifting for 2 weeks. Justicifation of Admission Dx: Justifications for Admission: Justification of Admission Dx: Yes SHASHI LOJA APRN May 17, 2020 13:45
--- NOTE | 2020-05-17 13:52 | DISCH ---
DISCHARGE INSTRUCTIONS Condition on Discharge Condition on Discharge: Stable Activity After Discharge Activity Instructions for Disc: Activity as tolerated Lifting Instructions after Dis: No heavy lifting Wound Incision Care Other wound/incision instructi: may shower 05/18/2020, keep bandaid over drain site Contacting the [facility] after DC Call your doctor for: If your condition worsens SHASHI LOJA APRN May 17, 2020 13:52
--- NOTE | 2020-05-17 13:55 | PDOC3 ---
Discharge Summary Date of Admission: May 16, 2020 Date of Discharge: May 17, 2020 Follow-Up: 1-2 days Admitting Diagnosis comment: DISCHARGE DX Assessment/Plan 74-year-old male with past medical history of atrial fibrillation and coronary artery disease, status post carotid endarterectomy. Right carotid endarterectomy with eversion technique. resume his home medications, will manage any pain. resume his home warfarin, follow daily INRs. He is having some urinary retention with a history of BPH. obtain bilateral renal ultrasounds. home health outpatient urology follow-up, and may need to discharge patient with leg bag Thacker if retention continues to be an ongoing issue. d/w rn DPOA REVIEW, DISCUSSION 10 MG d/c planning 35 min Justifications for Admission History of Present Illness History of Present Illness History of Present Illness History of Present Illness Patient 74-year-old male who is status post endarterectomy for asymptomatic high-grade right internal carotid stenosis, and we were asked to consult for medical management. Per nursing staff he is having some urinary retention, with a history of BPH. Patient currently denies any significant pain. Patient is very hard of hearing, which does limit history taking to certain degree. Past Medical History Cardiovascular: CAD, CHF, HTN, Hyperlipidemia Pulmonary: No pertinent hx CENTRAL NERVOUS SYSTEM: CVA GI: No pertinent hx Heme/Onc: No pertinent hx Hepatobiliary: No pertinent hx Musculoskeletal: low back pain, Osteoarthritis Renal/: Benign prostatic enlarg. Endocrine: No pertinent hx Past Surgical History Past Surgical History: CABG, Other Family History Family History: Other (Family history noncontributory) Vitals Vitals Vital Signs Date Time Temp Pulse Resp B/P (MAP) Pulse Ox O2 Delivery O2 Flow Rate FiO2 05/17/20 07:58 90 166/70 05/17/20 07:54 20 95 Room Air 05/17/20 07:00 98.2 98.2 Physical Exam Physical Exam incision clean and dry General: Alert, Oriented X3, Cooperative, No acute distress Heart: Regular rate, Normal S1, Normal S2 Lungs: Clear Abdomen: Normal bowel sounds, Soft, No tenderness, No hepatosplenomegaly, No masses Extremities: No clubbing, No cyanosis, No edema, Normal pulses, No tenderness/swelling Skin: No rashes, No breakdown, Other (10 cm postsurgical scar to right neck, sutures in place) Labs LABS STATUS: ADM IN ORD. PHYSICIAN: AMY VILLARREAL MD REASON: difficulty emptying bladder PROCEDURE: RENAL COMPLETE BILATERAL RENAL COMPLETE BILATERAL History: Reason: difficulty emptying bladder / Spl. Instructions: / History: Comparison: None. Procedure: Transabdominal ultrasound images are obtained of the kidneys and bladder. Findings: Right kidney: measures 10.2 x 5.9 x 4.8 cm. Normal cortical echotexture. Corticomedullary differentiation is preserved. No hydronephrosis. Left kidney: measures 10.2 x 5.3 x 5.9 cm. Left renal parenchymal calcification. No hydronephrosis. Several left renal cysts largest measures 3.2 cm and 2.9 cm. Urinary bladder: Decompressed urinary bladder with Thacker catheter in place. The IVC is normal caliber. The visualized abdominal aorta is normal caliber. IMPRESSION: 1. Left renal cysts. No follow-up imaging is recommended per consensus recommendations based on imaging criteria. 2. Left mid renal parenchymal calcification. Electronically signed by: Car Ortiz DO (05/16/2020 9:17 PM) [facility] DICTATED and SIGNED BY: CAR ORTIZ DO DATE: 05/16/202116 Brief Hospital Course Mr. Talbot is a 74 old [sex] who presented with [carotid endartectomy ] CONDITION AT DISCHARGE: Improved Discharge Medications Current Medications Ondansetron HCl (Zofran) 4 mg PRN Q6HRS PRN IV NAUSEA/VOMITING; Start 05/16/20 at 07:00; Stop 05/17/20 at 06:59; Status DC Fentanyl Citrate (Fentanyl 2ml Vial) 25 mcg PRN Q5MIN PRN IV MILD PAIN 1-3; Start 05/16/20 at 07:00; Stop 05/17/20 at 06:59; Status DC Fentanyl Citrate (Fentanyl 2ml Vial) 50 mcg PRN Q5MIN PRN IV MODERATE TO SEVERE PAIN; Start 05/16/20 at 07:00; Stop 05/17/20 at 06:59; Status DC Morphine Sulfate (Morphine Sulfate) 1 mg PRN Q10MIN PRN IV SEVERE PAIN 7-10; Start 05/16/20 at 07:00; Stop 05/17/20 at 06:59; Status DC Ringer's Solution 1,000 ml @ 30 mls/hr Q24H IV Last administered on 05/16/20at 09:38; Start 05/16/20 at 07:00; Stop 05/16/20 at 18:59; Status DC Hydromorphone HCl (Dilaudid) 0.5 mg PRN Q10MIN PRN IV SEV PAIN, Second choice; Start 05/16/20 at 07:00; Stop 05/17/20 at 06:59; Status DC Prochlorperazine Edisylate (Compazine) 5 mg PACU PRN PRN IV NAUSEA, MRX1; Start 05/16/20 at 07:00; Stop 05/17/20 at 06:59; Status DC Heparin Sodium (Porcine) 5000 unit/Ringer's Solution 505 ml @ 505 mls/hr 1X ONCE IRR Last administered on 05/16/20at 10:00; Start 05/16/20 at 06:00; Stop 05/16/20 at 06:59; Status DC Cefazolin Sodium 1 gm/Sodium Chloride 500 ml @ 500 mls/hr 1X ONCE IRR Last administered on 05/16/20at 10:00; Start 05/16/20 at 06:00; Stop 05/16/20 at 06:59; Status DC Clindamycin Phosphate 50 ml @ 100 mls/hr 1X PREOP PRN IV PRIOR TO PROCEDURE Last administered on 05/16/20at 09:37; Start 05/16/20 at 06:00; Stop 05/16/20 at 18:00; Status DC Lidocaine HCl (Lidocaine 1% 20ml Vial) 20 ml STK-MED ONCE .ROUTE Last administered on 05/16/20at 10:00; Start 05/16/20 at 07:33; Stop 05/16/20 at 07: 33; Status DC Cellulose (Surgicel Fibrillar 1x2) 1 each STK-MED ONCE .ROUTE Last administered on 05/16/20at 10:00; Start 05/16/20 at 07:33; Stop 05/16/20 at 07:33; Status DC Protamine Sulfate (Protamine) 50 mg STK-MED ONCE IV ; Start 05/16/20 at 07:33; Stop 05/16/20 at 07:34; Status DC Midazolam HCl (Versed) 2 mg STK-MED ONCE .ROUTE ; Start 05/16/20 at 08:02; Stop 05/16/20 at 08:03; Status DC Midazolam HCl (Versed) 2 mg STK-MED ONCE .ROUTE ; Start 05/16/20 at 08:02; Stop 05/16/20 at 08:03; Status DC Dexamethasone Sodium Phosphate (Decadron) 4 mg STK-MED ONCE .ROUTE ; Start 05/16/20 at 08:31; Stop 05/16/20 at 08:31; Status DC Ondansetron HCl (Zofran) 4 mg STK-MED ONCE .ROUTE ; Start 05/16/20 at 08:31; Stop 05/16/20 at 08:31; Status DC Phenylephrine HCl (Jasper-Synephrine Inj) 10 mg STK-MED ONCE .ROUTE ; Start 05/16/20 at 08:31; Stop 05/16/20 at 08:31; Status DC Heparin Sodium (Porcine) (Heparin Sodium) 10,000 unit STK-MED ONCE .ROUTE ; Start 05/16/20 at 08:34; Stop 05/16/20 at 08:34; Status DC Famotidine (Pepcid Vial) 20 mg STK-MED ONCE .ROUTE ; Start 05/16/20 at 08:36; Stop 05/16/20 at 08:37; Status DC Ropivacaine (Naropin 0.5%) 20 ml STK-MED ONCE .ROUTE ; Start 05/16/20 at 08:53; Stop 05/16/20 at 08:53; Status DC Dexmedetomidine HCl 400 mcg/ Sodium Chloride 100 ml @ 0 mls/hr 1X ONCE IV Last administered on 05/16/20at 09:30; Start 05/16/20 at 09:15; Stop 05/16/20 at 09:16; Status DC Lidocaine HCl (Xylocaine-Mpf 1% 2ml Vial) 2 ml STK-MED ONCE .ROUTE ; Start 05/16/20 at 09:05; Stop 05/16/20 at 09:06; Status DC Aspirin (Aspirin Chewable) 81 mg DAILY PO Last administered on 05/17/20at 07:55; Start 05/17/20 at 09:00 Clopidogrel Bisulfate (Plavix) 75 mg DAILY PO Last administered on 05/17/20at 07:56; Start 05/17/20 at 09:00 Diazepam (Valium) 2.5 mg TID PO Last administered on 05/17/20at 07:55; Start 05/16/20 at 14:00 Diltiazem HCl (Cardizem 24hr Cd) 180 mg DAILY PO Last administered on 05/17/20at 07:58; Start 05/16/20 at 12:00 Pantoprazole Sodium (Protonix) 40 mg BIDAC PO Last administered on 05/17/20at 07:55; Start 05/16/20 at 16:30 Losartan Potassium (Cozaar) 50 mg BID PO Last administered on 05/17/20at 07:58; Start 05/16/20 at 12:00 Hydralazine HCl (Apresoline Inj) 20 mg STK-MED ONCE .ROUTE ; Start 05/16/20 at 09:54; Stop 05/16/20 at 09:55; Status DC Ephedrine Sulfate (ePHEDrine PF IN SALINE SYRINGE) 50 mg STK-MED ONCE IV ; Start 05/16/20 at 10:13; Stop 05/16/20 at 10:13; Status DC Ephedrine Sulfate (ePHEDrine PF IN SALINE SYRINGE) 50 mg STK-MED ONCE IV ; Start 05/16/20 at 10:15; Stop 05/16/20 at 10:15; Status DC Glycopyrrolate (Robinul) 1 mg STK-MED ONCE .ROUTE ; Start 05/16/20 at 10:16; Stop 05/16/20 at 10:16; Status DC Lidocaine HCl (Lidocaine 1% 20ml Vial) 20 ml STK-MED ONCE .ROUTE Last administered on 05/16/20at 10:00; Start 05/16/20 at 10:24; Stop 05/16/20 at 10:24; Status DC Lidocaine HCl (Lidocaine 1% 20ml Vial) 20 ml STK-MED ONCE .ROUTE ; Start 05/16/20 at 10:24; Stop 05/16/20 at 10:25; Status DC Epinephrine HCl (EPINEPHrine SYRINGE) 1 mg STK-MED ONCE .ROUTE ; Start 05/16/20 at 10:25; Stop 05/16/20 at 10:25; Status DC Sodium Chloride (Normal Saline Flush) 3 ml QSHIFT PRN IV AFTER MEDS AND BLOOD DRAWS; Start 05/17/20 at 09:00 Sodium Chloride 1,000 ml @ 100 mls/hr Q10H IV Last administered on 05/17/20at 09:53; Start 05/16/20 at 11:27 Morphine Sulfate (Morphine Sulfate) 2 mg PRN Q1HR PRN IV PAIN; Start 05/16/20 at 11:30 Acetaminophen/ Hydrocodone Bitart (Lortab 5/325) 1 tab PRN Q4HRS PRN PO MILD PAIN 1-3 Last administered on 05/16/20at 19:43; Start 05/16/20 at 11:30 Acetaminophen/ Hydrocodone Bitart (Lortab 5/325) 2 tab PRN Q4HRS PRN PO MODERATE PAIN, SEVERE PAIN Last administered on 05/17/20at 07:54; Start 05/16/20 at 11:30 Acetaminophen (Tylenol) 650 mg Q8HRS PO Last administered on 05/17/20at 06:09; Start 05/16/20 at 14:00 Ondansetron HCl (Zofran) 4 mg PRN Q6HRS PRN IVP NAUESA, 1ST CHOICE; Start 05/16/20 at 11:30 Hydralazine HCl (Apresoline Inj) 5 mg PRN Q4HRS PRN IVP ELEVATED BP, SEE COMMENTS; Start 05/16/20 at 11:30 Labetalol HCl (Normodyne Iv Push) 10 mg PRN Q2HR PRN IVP HYPERTENSION Last administered on 05/16/20at 16:52; Start 05/16/20 at 11:30 Warfarin Sodium (Coumadin) 2.5 mg QSUTUTH PO ; Start 05/17/20 at 16:00 Warfarin Sodium (Coumadin) 5 mg QMWFSA PO Last administered on 05/16/20at 19:40; Start 05/16/20 at 18:40 Info (Anti-Coagulation Monitoring By Pharmacy) 1 each PRN DAILY PRN MC SEE COMMENTS; Start 05/16/20 at 18:45 Warfarin Sodium (Coumadin Per Physician) 1 each PRN DAILY PRN MC SEE COMMENTS Last administered on 05/17/20at 10:27; Start 05/17/20 at 10:30 Active Scripts Active Reported Pantoprazole Sodium (Pantoprazole Sodium) 40 Mg Tablet.dr 40 Mg PO BID Clopidogrel (Clopidogrel Bisulfate) 75 Mg Tablet 75 Mg PO DAILY Aspirin 81 Mg Tab.chew 81 Mg PO DAILY Warfarin Sodium 2.5 Mg Tablet 2.5 Mg PO UD Diazepam 5 Mg Tablet 0.5 Tab PO TID Irbesartan 300 Mg Tablet 0.5 Tab PO BID Diltiazem 24HR Cd (Diltiazem Hcl) 180 Mg Cap.er.24h 1 Cap PO DAILY Coumadin (Warfarin Sodium) 5 Mg Tablet 5 Mg PO QMWFSA As directed by PCP Vital Signs Vital Signs Date Time Temp Pulse Resp B/P (MAP) Pulse Ox O2 Delivery O2 Flow Rate FiO2 05/17/20 10:36 97.9 78 20 133/60 (84) 97 97.9 05/17/20 08:54 Room Air Labs Laboratory Tests Test 05/16/20 08:30 05/17/20 05:40 White Blood Count 6.7 x10^3/uL (4.0-11.0) 13.7 x10^3/uL (4.0-11.0) Red Blood Count 4.47 x10^6/uL (4.30-5.70) 4.19 x10^6/uL (4.30-5.70) Hemoglobin 13.1 g/dL (13.0-17.5) 12.1 g/dL (13.0-17.5) Hematocrit 39.3 % (39.0-53.0) 36.4 % (39.0-53.0) Mean Corpuscular Volume 88 fL (79-100) 87 fL (79-100) Mean Corpuscular Hemoglobin 29 pg (25-35) 29 pg (25-35) Mean Corpuscular Hemoglobin Concent 33 g/dL (31-37) 33 g/dL (31-37) Red Cell Distribution Width 15.5 % (11.5-14.5) 15.4 % (11.5-14.5) Platelet Count 223 x10^3/uL (140-400) 233 x10^3/uL (140-400) Neutrophils (%) (Auto) 68 % (31-73) Lymphocytes (%) (Auto) 21 % (24-48) Monocytes (%) (Auto) 8 % (0-9) Eosinophils (%) (Auto) 3 % (0-3) Basophils (%) (Auto) 1 % (0-3) Neutrophils # (Auto) 4.6 x10^3/uL (1.8-7.7) Lymphocytes # (Auto) 1.4 x10^3/uL (1.0-4.8) Monocytes # (Auto) 0.5 x10^3/uL (0.0-1.1) Eosinophils # (Auto) 0.2 x10^3/uL (0.0-0.7) Basophils # (Auto) 0.1 x10^3/uL (0.0-0.2) Prothrombin Time 15.4 SEC (11.7-14.0) 15.2 SEC (11.7-14.0) Prothromb Time International Ratio 1.3 (0.8-1.1) 1.2 (0.8-1.1) Sodium Level 140 mmol/L (136-145) 140 mmol/L (136-145) Potassium Level 3.9 mmol/L (3.5-5.1) 4.0 mmol/L (3.5-5.1) Chloride Level 103 mmol/L (98-107) 103 mmol/L (98-107) Carbon Dioxide Level 29 mmol/L (21-32) 26 mmol/L (21-32) Anion Gap 8 (6-14) 11 (6-14) Blood Urea Nitrogen 14 mg/dL (8-26) 14 mg/dL (8-26) Creatinine 0.9 mg/dL (0.7-1.3) 1.0 mg/dL (0.7-1.3) Estimated GFR (Cockcroft-Gault) 82.3 72.8 Glucose Level 125 mg/dL (70-99) 126 mg/dL (70-99) Calcium Level 8.6 mg/dL (8.5-10.1) 7.5 mg/dL (8.5-10.1) Laboratory Tests Test 05/17/20 05:40 White Blood Count 13.7 x10^3/uL (4.0-11.0) Red Blood Count 4.19 x10^6/uL (4.30-5.70) Hemoglobin 12.1 g/dL (13.0-17.5) Hematocrit 36.4 % (39.0-53.0) Mean Corpuscular Volume 87 fL (79-100) Mean Corpuscular Hemoglobin 29 pg (25-35) Mean Corpuscular Hemoglobin Concent 33 g/dL (31-37) Red Cell Distribution Width 15.4 % (11.5-14.5) Platelet Count 233 x10^3/uL (140-400) Prothrombin Time 15.2 SEC (11.7-14.0) Prothromb Time International Ratio 1.2 (0.8-1.1) Sodium Level 140 mmol/L (136-145) Potassium Level 4.0 mmol/L (3.5-5.1) Chloride Level 103 mmol/L (98-107) Carbon Dioxide Level 26 mmol/L (21-32) Anion Gap 11 (6-14) Blood Urea Nitrogen 14 mg/dL (8-26) Creatinine 1.0 mg/dL (0.7-1.3) Estimated GFR (Cockcroft-Gault) 72.8 Glucose Level 126 mg/dL (70-99) Calcium Level 7.5 mg/dL (8.5-10.1) Allergies Allergies Coded Allergies Type Severity Reaction Last Updated Verified carvedilol Allergy Severe Anaphylaxis 05/14/20 Yes Penicillins Allergy Intermediate 05/17/20 Yes [id number] Reductase Inhibitor Allergy Intermediate 05/17/20 Yes atenolol Allergy Intermediate 05/17/20 Yes hydrochlorothiazide Allergy Intermediate 05/17/20 Yes metoprolol Allergy Intermediate 05/17/20 Yes propoxyphene Allergy Intermediate 05/17/20 Yes erythromycin base Adverse Reaction Intermediate Nausea and Vomiting 05/14/20 Yes tetracycline Adverse Reaction Intermediate 05/14/20 Yes Disposition/Orders: D/C to Home w/ HH Justicifation of Admission Dx: Justifications for Admission: Justification of Admission Dx: Yes HELENA VALENTINE MD May 17, 2020 13:55
--- NOTE | 2020-05-17 13:57 | DISCH ---
DISCHARGE INSTRUCTIONS Condition on Discharge Condition on Discharge: Stable Activity After Discharge Activity Instructions for Disc: Activity as tolerated, Avoid exertion Lifting Instructions after Dis: No heavy lifting, No pulling or pushing Driving Instructions after Dis: Do not drive Diet after Discharge Diet after Discharge: Cardiac Wound Incision Care Other wound/incision instructi: inga shower 05/18/2020, keep bandaid over drain site Contacting the DR. after DC Call your doctor for: If your condition worsens Treatment/Equipment after DC Adaptive Equipment Issued: Front wheeled walker Warfarin Follow-Up Warfarin Follow UP: inr daily HELENA VALENTINE MD May 17, 2020 13:57
--- NOTE | 2020-05-17 14:20 | NUR ---
SS following up with discharge planning. SS reviewed pt chart and discussed with pt RN. Pt is currently on room air. Discharge order on the chart for home with self care.
[2020-05-17 14:37] VITALS: BP 170/72
[2020-05-17] MEDS ORDERED: WARFARIN 2.5 MG TABLET. PO SCH (16:00)
--- NOTE | 2020-05-17 16:21 | NUR ---
SS following up with discharge planning. Pt's spouse requesting [facility], ; fax [phone]. SS phoned and faxed referral to [facility]. Pt's RN notified.
--- NOTE | 2020-05-17 16:23 | SNU/HH DC ---
DISCHARGE WITH HOME HEALTH DISCHARGE INFORMATION: Condition on Discharge: Stable CODE STATUS: Code Status: Full HOME HEALTH: Face to Face: I certify this patient is under my care and that I, or a nurse practitioner or physician's vet assistant working with me, had a face to face encounter that meets the physician face to face encounter requirements with this patient on []. Medical Complications: Other (c) RN For Eval/Treatment: Yes ASSOCIATE PROFESSOR PHYSICIAN For: Community Resources Pt Meets Homebound Status: Limited distance walking POST DISCHARGE ORDERS: Activity Instructions for Disc: Activity as tolerated, Avoid exertion Bathing Instructions: No Tub Bath until see DIET AFTER DISCHARGE: Cardiac Other wound/incision instructi: january shower 05/18/2020, keep bandaid over drain site FOLLOW-UP: Warfarin Follow UP: inr daily TREATMENT/EQUIPMENT ORDERS: Adaptive Equipment Issued: Front wheeled walker CERTIFICATION STATEMENT: Certification Statement: Certification Statement: Based on the above finding, I certify that this patient is confined to the home and needs intermittent mcfp care, physical therapy and/or speech therapy, or continues to need occupational therapy.~ This patient is under my care, and I have initiated the establishment of the plan of care.~ This patient will be followed by myself or a community physician who will periodically review the plan of care. Home Meds Reported Medications Pantoprazole Sodium (PANTOPRAZOLE SODIUM ) 40 Mg Tablet.dr, 40 MG PO BID for GERD, TAB 05/14/20 Clopidogrel Bisulfate (CLOPIDOGREL) 75 Mg Tablet, 75 MG PO DAILY for TO PREVENT BLOOD CLOTS, #30 TAB 0 Refills 05/14/20 Aspirin (ASPIRIN) 81 Mg Tab.chew, 81 MG PO DAILY for blood thinner, TAB.CHEW 05/14/20 Warfarin Sodium (WARFARIN SODIUM) 2.5 Mg Tablet, 2.5 MG PO UD for blood thinner, TAB 05/14/20 Diazepam (DIAZEPAM) 5 Mg Tablet, 0.5 TAB PO TID, TAB 04/01/18 Irbesartan (IRBESARTAN) 300 Mg Tablet, 0.5 TAB PO BID, #30 TAB 5 Refills 04/01/18 Diltiazem Hcl (DILTIAZEM 24HR CD) 180 Mg Cap.er.24h, 1 CAP PO DAILY, #30 CAP 5 Refills 04/01/18 Warfarin Sodium (COUMADIN) 5 Mg Tablet, 5 MG PO QMWFSA for blood thinner, #90 TAB 1 Refill As directed by PCP 04/01/18 HELENA VALENTINE MD May 17, 2020 16:23
--- NOTE | 2020-05-17 19:15 | NUR ---
Patient voided 350ml prior to discharge, urine clear yellow. Bladder scan was performed approx 1 hr prior, with 165ml present. Patient wanted to be discharged at that time without voiding. Dr Martinez was consulted regarding this and related that patient to void prior to discharge. (patient was irritated regarding staying for that, but did void without apparent difficulty. Patient was discharged to his daughter in stable conditions.
== END 2020-05-17 19:40 | disposition home health service (06) | DRG 39 ==
LOC: OPSVCIP 08:04 → 2 SOUTH 12:27
PROVIDERS: ADMIT Surgery; ATTEND Surgery
PROC: 03CK0ZZ Extirpation of Matter from Right Internal Carotid Artery, Open Approach (ICD-10-PCS; principal; 2020-05-16 09:15)
DX: I65.21 Occlusion and stenosis of right carotid artery (principal); I50.9 Heart failure, unspecified; E78.5 Hyperlipidemia, unspecified; I11.0 Hypertensive heart disease with heart failure; I25.10 Atherosclerotic heart disease of native coronary artery without angina pectoris; I48.91 Unspecified atrial fibrillation; N40.1 Benign prostatic hyperplasia with lower urinary tract symptoms; R33.8 Other retention of urine; M19.90 Unspecified osteoarthritis, unspecified site; H91.90 Unspecified hearing loss, unspecified ear; Z88.1 Allergy status to other antibiotic agents; Z86.73 Personal history of transient ischemic attack (TIA), and cerebral infarction without residual deficits; Z79.899 Other long term (current) drug therapy; Z95.1 Presence of aortocoronary bypass graft; Z88.0 Allergy status to penicillin; Z88.8 Allergy status to other drugs, medicaments and biological substances
CPT/HCPCS: 36415; 76770; 80048; 85025; 85027; 85610; J0171; J0360; J0690; J1100; J1644; J2250; J2370; J2405; J2720; J2795; J3490; J7030; J7040; J7120; G0378